=== PATIENT | female | born 2000 | race Caucasian/White ===

== ENCOUNTER 2022-01-28 13:48 | Emergency (ER) | payer OTHER | END 2022-01-28 14:21 | disposition home or self-care (01) | LOC: CSHERS 13:48 | DX: S90.562A Insect bite (nonvenomous), left ankle, initial encounter (principal); I49.8 Other specified cardiac arrhythmias; W57.XXXA Bitten or stung by nonvenomous insect and other nonvenomous arthropods, initial encounter | CPT/HCPCS: 99283 ==